=== PATIENT | male | born 1975 | race Caucasian/White ===

== ENCOUNTER 2017-04-18 05:47 | Emergency (ER) | payer OTHER ==
[~2017-04-18] VITALS: Ht 175.3 cm; Wt 94.8 kg
[2017-04-18 05:49] VITALS: BP 130/83
[2017-04-18] MEDS ORDERED: DIPHENHYDRAMINE 50 MG/ML, 1ML ONE (06:25)
[2017-04-18] MEDS ORDERED: PROCHLORPERAZINE 5 MG/ML, 2ML ONE (06:25)
[2017-04-18] MEDS ORDERED: KETOROLAC 30 MG/1 ML ONE (06:25)
[2017-04-18] MEDS ORDERED: PROCHLORPERAZINE 5 MG/ML, 2ML IVPush ONE (06:30)
[2017-04-18] MEDS ORDERED: KETOROLAC 30 MG/1 ML IVPush ONE (06:30)
[2017-04-18] MEDS ORDERED: SODIUM CHLORIDE FLUSH 10ML SYR IVF ONE (06:30)
[2017-04-18] MEDS ORDERED: SODIUM CHLORIDE 0.9% 1,000ML IVBOLUS ONE (06:30)
[2017-04-18] MEDS ORDERED: DIPHENHYDRAMINE 50 MG/ML, 1ML IVPush ONE (06:30)
== END 2017-04-18 07:20 | disposition left against medical advice (07) ==
LOC: ED 06:45
DX: J06.9 Acute upper respiratory infection, unspecified (principal); H65.01 Acute serous otitis media, right ear
CPT/HCPCS: 96374; 96375; 99284; J0780; J1200; J1885; J7030